=== PATIENT | male | born 1960 | race Caucasian/White ===

== ENCOUNTER 2023-01-23 11:22 | Outpatient (CLI) | payer OTHER, SELFPAY ==
[2023-01-23 12:10] LABS: Troponin I 0.061 ng/mL (0.000-0.034)
== END 2023-01-23 11:23 | disposition home or self-care (01) ==
LOC: ANHLAB 11:24
PROVIDERS: PCP Family Medicine; Visit Provider Physician Assistant
DX: R07.9 Chest pain, unspecified (principal)
CPT/HCPCS: 36415; 84484

== ENCOUNTER 2023-01-23 13:47 | Observation (INO) | payer OTHER, SELFPAY ==
[2023-01-23] VITALS (20 sets, daily range): BP systolic 123–154; BP diastolic 65–97; PULSE 57–82; RESP 10–31; TEMP 36.2–36.6; O2SAT 96–100; BMI 23.0
--- NOTE | ~2023-01-23 | XR_ITS ---
EXAMINATION: XR chest 1V portable DATE: 01/23/2023 14:26 INDICATION: Chest pain. TECHNIQUE: A single frontal view of the chest was obtained on 2 radiographs. COMPARISON: None. FINDINGS: There is mild scarring at right lung apex. No pleural effusion or pneumothorax. The heart s ize is normal. IMPRESSION: 1. Mild atelectasis at right lung apex. Reviewed, dictated and finalized at location A.
--- NOTE | ~2023-01-23 | CT_ITS ---
EXAMINATION: CTA chest PE protocol DATE: 01/23/2023 16:31 INDICATION: Elevated troponin and ddimer TECHNIQUE: Computed tomography angiography (CTA) of the chest was performed with 100 mL Omnipaque-350 intravenous contrast timed to evaluate the pulmonary arteries. Coronal maximum intensity projection 3D-reconstructions were created by the technologist. The dose-length product (DLP) was 365.16 mGy-cm. Automated exposure control and iterative reconstruction technique were employed. COMPARISON: X-ray chest, same date. FINDINGS: Lung parenchyma and airways: Biapical pleural scarring. Emphysematous change. Calcified pulmonary gra nuloma in the right upper lobe. Dependent atelectasis. Pleura: Unremarkable. Thoracic inlet, axillae and chest wall: Subcentimeter right thyroid nodule which requires no addition al evaluation. No axillary lymphadenopathy. Thoracic aorta: No significant dilation. Mild calcified and noncalcified plaque at the arch. Mediastinum: Small hiatal hernia. No mediastinal lymphadenopathy. Heart and pericardium: Normal. Coronary artery calcifications: Mild. Upper abdomen: No significant finding. Bones: No acute osseous finding. Pulmonary arteries: Study quality: Adequate. No pulmonary emboli detected. IMPRESSION: No CT evidence of acute pulmonary embolus. No acute intrathoracic process detected. Reviewed, dictated and finalized at location K. IMPRESSION: No CT evidence of acute pulmonary embolus. No acute intrathoracic process detec radha.
--- NOTE | 2023-01-23 14:00 | ECG_ITS ---
Measurements Intervals [place] Rate: 57 P: 46 TX: 170 QRS: 39 QRSD: 84 T: 35 QT: 375 QTc: 365 Interpretive Statements SINUS BRADYCARDIA MODERATE T-WAVE ABNORMALITY, CONSIDER ANTERIOR ISCHEMIA [-0.1+ mV T WAVE IN V3/V4] NO PREVIOUS ECG AVAILABLE FOR COMPARISON Electronically Signed On 01-23-2023 14:43:13 CDT by Kecia Serra M.D.
[2023-01-23 14:37] LABS: Basophils Absolute Auto 0.1 K/mm3 (0.0-0.1); Eosinophils Absolute Auto 0.1 K/mm3 (0-0.3); Eosinophils Percent Auto 0.9 % (0-4.4); Hematocrit 45.7 % (42.0-52.0); Hemoglobin 15.1 g/dL (14.0-18.0); Immature Granulocyte Absolute 0.03 K/mm3 (0.00-0.031); Immature Granulocyte Percent A 0.4 % (0-0.5); Lymphocytes Absolute Auto 1.28 K/mm3 (0.9-3.2); Lymphocytes Percent Auto 15.6 % (18.3-44.2); Mean Corpuscular Hemoglobin 30.3 pg (26-34); Mean Corpuscular Volume 91.6 fl (80-100); Mean Platelet Volume 10.4 fl (7.4-10.4); Monocytes Absolute Auto 0.5 K/mm3 (0.1-0.6); Monocytes Percent Auto 6.6 % (2.6-8.5); Neutrophils Absolute Auto 6.2 K/mm3 (1.3-6.7); Neutrophils Percent Auto 75.5 % (45.5-73.1); Platelet Count Result 291 k/mm3 (150-375); Red Blood Count 4.99 M/mm3 (4.6-6.20); Red Cell Distribution Width 12.9 % (11.5-14.5); White Blood Count 8.2 K/mm3 (4.5-10.0)
[2023-01-23 14:49] LABS: Alanine Aminotransferase 29 U/L (6-50); Albumin Level 4.5 g/dL (3.5-5.1); Alkaline Phosphatase 119 U/L (38-126); Anion Gap 6 mmol/L (8-16); Aspartate Amino Transferase 28 U/L (17-59); Bilirubin,Total 0.5 mg/dL (0.2-1.3); Blood Urea Nitrogen 18 mg/dL (9-20); Calcium 9.2 mg/dL (8.4-10.2); Carbon Dioxide 28 mmol/L (22-30); Chloride 104 mmol/L (98-107); Estimated CRCL calculation 78 ml/min; Estimated Glomerular Filt Rate > 60; Glucose 102 mg/dL (65-110); Potassium 4.6 mmol/L (3.4-5.0); Sodium 138 mmol/L (137-145)
[2023-01-23 14:57] LABS: Partial Thromboplastin Time 30.4 SECONDS (22.3-36.8); Prothrombin Time 14.1 Seconds (11.1-14.7)
[2023-01-23 15:00] LABS: D Dimer 0.56 ug/mL (<0.48)
[2023-01-23 15:02] LABS: Troponin I 0.055 ng/mL (0.000-0.034)
--- NOTE | 2023-01-23 15:14 | ED.CHESTPAIN ---
HPI - Chest Pain General Chief Complaint: Chest Pain Stated Complaint: chest pain Time Seen by Provider: 01/23/23 13:59 History of Present Illness HPI narrative: 62-year-old male presented the ED for evaluation of intermittent left-sided and epigastric chest pain. Patient reports on Sunday he drank some water while smoking a cigar and had onset of substernal chest pain that radiated to his left arm and lasted approximately 10 minutes. Sunday and today. Patient did take omeprazole and Maalox for the pain today and the symptoms resolved. Patient states that he does have borderline high cholesterol, is not diabetic and has not been diagnosed with hypertension. Patient states he is a smoker but denies any prior history of NE. Patient states he is pain-free here patient did present to his primary care physician for evaluation and did have an outpatient troponin that was elevated so he was referred to the emergency department for further evaluation. Related Data Allergies Allergy/AdvReac Type Severity Reaction Status Date / Time No Known Allergies Allergy Unverified 01/23/23 10:22 Review of Systems Review of Systems: All systems reviewed & are unremarkable except as noted in HPI and below PMFSH Past Medical History Medical History Smoking Family History Family History Father Heart disease Sibling Breast cancer Social History Social History Smoking status: Current some day smoker Tobacco type: cigars Alcohol intake: current Alcohol use details: 1-2 drinks a week Substance use: never Living arrangements: with family Occupation/Education: occupation Gender identity (if verbalized by the patient): Male Sexual Orientation (if Verbalized by the Patient): Straight or Heterosexual 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: No Exam Narrative: APPEARANCE: Well appearing, no pain, no distress, well-nourished. HEAD: normocephalic, atraumatic. EYES: PERRLA/EOMI, conjunctivae clear. NOSE: Normal no drainage EARS:TMS clear with good light reflex. THROAT: Pharynx clear, no exudate. NECK: Supple. No adenopathy, no masses. RESPIRATORY: Airway patent, respirations nonlabored. Clear to auscultation bilaterally, no rales, rhonchi, wheezing. CARDIOVASCULAR: Regular rate and rhythm without murmurs rubs or gallops. ABDOMINAL: Soft, nontender, nondistended, normal bowel sounds MUSCULOSKELETAL: Moves all extremities. Strength/ROM intact, No edema, No calf tenderness. NEURO: Alert. Cranial nerves II through XII intact. Good gait. Good coordination SKIN: Warm, dry. Normal Color PSYCHIATRIC: Normal affect/mood. Course Course Emergency Course: 62-year-old male presented the ED for evaluation for an elevated troponin. Patient's initial troponin was 0.061 and his 3-hour troponin that was done and our ED was 0.055. EKG showed T wave inversions with no evidence of acute STEMI. Patient did have an elevated dimer but patient's PE study was negative for acute pulmonary embolism. Patient was discussed with the sole painter on-call, Dr. Boss. Cardiology agreed the patient to be started on heparin with anticipated cardiac cath tomorrow. Patient did have aspirin and heparin ordered. Patient was updated the results of the work-up and plan for admission with an anticipated cath tomorrow. All questions and concerns were addressed and patient was admitted to the IMU. Vital Signs Vital signs: Vital Signs Temperature 97.2 F L 01/23/23 13:49 Pulse Rate 73 01/23/23 13:49 Respiratory Rate 18 01/23/23 13:49 Blood Pressure 154/94 H 01/23/23 13:49 Pulse Oximetry 99 01/23/23 13:49 Oxygen Delivery Room Air 01/23/23 13:49 Temperature 97.2 F L 01/23/23 13:49 Pulse Rate 60 01/23/23 18:18 Respiratory Rate 18 01/23/23 13:49 Blood Pressure 154/94 H 01/23/23 13:49 Pulse Oximetry 99 01/23/23 13:49 Oxygen
[2023-01-23] MEDS: HEPARIN SODIUM 5,000 UNITS/ML VIAL 5000 UNITS (18:14)
[2023-01-23] MEDS: HEPARIN SOD/D5W 100 UNITS/ML 25,000 UNITS/250 ML BAG 12 UNITS (18:14)
--- NOTE | 2023-01-23 18:41 | PM.IMHP ---
H&P: HPI History of Present Illness Date/Time: 01/23/23 18:15 Chief Complaint: Chest pain. Narrative: This is a pleasant 62-year-old smoker who presented to the emergency department via private vehicle for evaluation of chest pain. The patient provides the following history. On Sunday morning he got up at about 07:00 as usual, had a couple coffee, and went outside to smoke part of a cigar. At that time he developed a pressure-like discomfort in the mid chest region radiating up into the left side of the neck and jaw and into the left arm. He initially thought he was having esophageal spasms so he went inside to drink some water and take [place] and his symptoms resolved within 10 minutes or so. Later on that day he went shopping at [id number] and he was able to walk around the entire store without issue. Once he was home he when out to mow the lawn and approximately 30 minutes into the job he had similar pressure-like discomfort in the chest. He rested for a while, it resolved, and he was ultimately able to finish mowing. The last couple of days he has had similar episodes, mainly in the morning, which seemed to improve with drinking water. Today the discomfort was more intense and was associated with sweats. He took omeprazole thinking it was perhaps GERD or esophageal spasms though that did not help. He phoned his doctor, had outpatient lab work drawn, and was referred to the ER after his troponin was found to be slightly elevated at 0.061. Repeat troponin in the ED was 0.055. D-dimer was slightly elevated and a CTA of the chest was negative for pulmonary embolism. EKG showed a sinus bradycardia with moderate T-wave abnormalities in the anterior leads concerning for possible ischemia. He is being admitted in this setting for close monitoring, consultation with Cardiology, and consideration for cardiac catheterization tomorrow. He is not having any significant discomfort at this time. He has no known history of coronary artery disease. Father had heart disease in his mid 50s. Review of Systems Review of Systems: Twelve systems were reviewed. No syncope or near syncope. No pleuritic pain. No palpitations or sensations of racing heart. Heart rate typically runs in the 60s. He denies nausea and vomiting. He did have some sweats with the chest discomfort earlier today. No shortness of breath. Except as documented, all other systems were reviewed and are negative. [facility] Past Medical History Medical History Benign prostatic hyperplasia Smoking Surgical History Surgical History (Updated 01/23/23 @ 21:39 by Dina Payne PA-C) No history of previous surgery Family History Family History Father Heart disease Sibling Breast cancer Social History Social History (Updated 01/23/23 @ 21:41 by Dina Payne PA-C) Social History: Surrogate medical decision maker: Dilia Ding, spouse. Code status: Full code. Smoking packs per day: 1 Smoking cigarettes per day: 20.0 Smoking status: Current every day smoker Tobacco type: cigars Additional smoking assessment comments: He has been using nicotine gum recently and has an occasional cigar. Alcohol intake: current Drinks per week: 1 Alcohol use details: 1-2 drinks a week Substance use: never Lack of Transportation: No Lack of Food: Never True Current Housing: I Have Housing Concerned About Future Housing: No Difficulty Paying Gas/Electric Bills: No Difficulty Paying for Meds: No Currently Unemployed: No Education: Bachelor's Degree Difficulty w/ Childcare or Family Care: No Living arrangements: with family Additional living arrangements comments: Lives with spouse in [place]. 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: No Meds Home Medications and Allergies Home Medications Medication Instructio
--- NOTE | 2023-01-23 19:55 | ADMGEN ---
This patient, Mariano Ding, was admitted to IMU Room 201-01. Patient/family oriented to hospital policies and general routines including ID bracelet, bed and alarms, visiting hours, pain management, procedures, bathroom and other care routines, personal items, smoking policy, room service/diet, and visiting hours. Information on how to activate the Rapid Response Team has been discussed. Patient/Family are encouraged to report perceived risks to care and to ask questions if they do not understand what they are told or what they should do.
[2023-01-23 19:56] LABS: Troponin I 0.026 ng/mL (0.000-0.034)
--- NOTE | 2023-01-23 20:02 | PM.CNCAR ---
Assessment and Plan Assessment and plan (1) Non-ST elevation [place] (NSTEMI): Code(s): I21.4 - Non-ST elevation (NSTEMI) myocardial infarction Status: Acute Assessment and Plan: Mild with Troponin .06, then .05. Got aspirin 325 mg in ER and started on heparin drip. Start Atorvastatin 80 mg qhs, Metoprolol Tartate 12.5 mg BID, and continue aspirin 81 mg daily. Check another troponin level in 3 hours since second draw. Obtain echo in AM. Keep NPO after midnight and plan for [facility] tomorrow. I will let HCG know in AM. (2) Smoking: Code(s): F17.200 - Nicotine dependence, unspecified, uncomplicated Status: Acute Assessment and Plan: Counseled regarding smoking cessation. History of Present Illness History of Present Illness Consult date/time: 01/23/23 20:02 Reason For Visit: NSTEMI Narrative: 62 yr old man presents to ER with chest pain. He has a history of smoking cigarettes 50 pk years then changed to 3 cigars a day, BPH, family history of CAD in his father at age 55. Reports for last 3 days he had chest pressure with radiation to left neck after drinking water and had diaphoresis. He mowed his lawn and had exertional chest pressure with radiation to left neck, so he stopped and discomfort subsided, when he attempted to mow again the discomfort returned. He went to his PCP office, Dr. Moran who ordered troponin and it was slightly elevated at .06. He was then told to go to ER for evaluation. Currently without active chest pains. Denies orthopnea, PND, edema, dizziness, palpitations. Review of Systems Review of Systems: All systems reviewed & are unremarkable except as noted in HPI and below Constitutional: Constitutional: Reports as per HPI, Denies chills and Denies fever(s) Cardiovascular: Cardiovascular: Reports as per HPI, Reports chest pain, Reports diaphoresis, Denies irregular heart rhythm, Denies leg edema and Denies lightheadedness Respiratory: Respiratory: Reports as per HPI and Denies dyspnea Gastrointestinal: Gastrointestinal: Reports as per HPI and Denies abdominal pain Genitourinary: Genitourinary: Reports as per HPI and Denies dysuria Musculoskeletal: Musculoskeletal: Reports as per HPI Neurologic: Reports as per HPI, Denies dizziness and Denies syncope [facility] Past Medical History Medical History Smoking Family History Family History Father Heart disease Sibling Breast cancer Social History Social History Smoking status: Current some day smoker Tobacco type: cigars Alcohol intake: current Alcohol use details: 1-2 drinks a week Substance use: never Living arrangements: with family Occupation/Education: occupation Gender identity (if verbalized by the patient): Male Sexual Orientation (if Verbalized by the Patient): Straight or Heterosexual 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: No Meds Home Medications and Allergies Home Medications Medication Instructions Recorded Confirmed Type aspirin 81 mg tablet,delayed 81 mg PO DAILY #30 tabs 01/23/23 01/23/23 Rx release Allergies Allergy/AdvReac Type Severity Reaction Status Date / Time No Known Allergies Allergy Unverified 01/23/23 10:22 Vital Signs Vital Signs - 24 hr 01/23/23 13:49 01/23/23 18:18 01/23/23 16:10 Temperature 97.2 F L Pulse Rate 73 60 67 Respiratory Rate 18 10 L Blood Pressure 154/94 H Pulse Oximetry 99 99 Oxygen Delivery Room Air 01/23/23 16:33 01/23/23 16:45 01/23/23 17:00 Temperature Pulse Rate 74 60 68 Respiratory Rate 11 L 15 19 Blood Pressure Pulse Oximetry 99 99 100 Oxygen Delivery 01/23/23 17:15 01/23/23 17:30 01/23/23 17:47 Temperature Pulse Rate 67 64 65 Respiratory Rate 10 L 12 12 Blood Pressure Pulse Oximetry 99 100 100 Oxygen Delivery 01/23/23 18:00 01/23/23 18:15 01/23/23 18:18 Temperature
[2023-01-23] MEDS: HEPARIN SOD/D5W 100 UNITS/ML 25,000 UNITS/250 ML BAG 9 UNITS IV CONT (21:00)
[2023-01-23] MEDS: ATORVASTATIN 40 MG TABLET 80 MG PO (21:03)
[2023-01-23] MEDS: METOPROLOL TARTRATE 12.5 MG TABLET PO (21:03)
[2023-01-24] VITALS (19 sets, daily range): BP systolic 118–140; BP diastolic 63–88; PULSE 52–72; RESP 14–20; TEMP 36.1–37.2; O2SAT 95–100
--- NOTE | 2023-01-24 | ECHO_ITS ---
Patient Info Name: Mariano Ding Age: 62 years : 1960 Gender: Male Ht: 70 in Wt: 165 lbs BSA: 1.93 m2 HR: 72 bpm BP: 119 / 63 mmHg Heart Rhythm: Sinus Rhythm Technical Quality: Good Exam Date: 01/24/2023 1:36 PM Exam Location: [facility] Card Pulmonary Patient Status: Inpatient Admit Date: 01/23/2023 Staff Ordering Physician: Neel Boss DO Editor Producer: Isabela Garg RDCS Attending Provider: Lyssa Clemente DO Referring Physician: Gera JEFFREY; Exam Type: CA echo doppler color flow Study Info Indications - ACS Complete two-dimensional, color flow and Doppler transthoracic echocardiogram is performed. Summary 1. Complete two-dimensional, color flow and Doppler transthoracic echocardiogram is performed. 2. Left ventricular chamber dimension is normal. 3. Left ventricular systolic function is normal, estimated at 65-70%. 4. The left ventricular diastolic function is normal. 5. There is trace tricuspid valve regurgitation. 6. No pulmonary hypertension, estimated pulmonary arterial systolic pressure is 9 mmHg. Left Ventricle Left ventricular chamber dimension is normal. Left ventricular systolic function is normal, estimated at 65-70%. The left ventricular diastolic function is normal. Right Ventricle Right ventricular systolic function is normal and with normal TAPSE 2.7 cm. Right ventricular chamber dimension is normal. Left Atria Left atrial chamber dimension is normal. Right Atria Right atrial chamber dimension is normal. Aortic Valve The aortic valve is trileaflet. There is no aortic valve stenosis. There is no aortic valve regurgitation. Pulmonic Valve There is no pulmonic regurgitation. Mitral Valve There is no mitral valve stenosis. There is no mitral valve regurgitation. Tricuspid Valve There is trace tricuspid valve regurgitation. No pulmonary hypertension, estimated pulmonary arterial systolic pressure is 9 mmHg. Pericardium/Pleural There is no pericardial effusion. Inferior Vena Cava Normal inferior vena cava with >50% collapse upon inspiration consistent with normal right atrial pressure, 5 mmHg. Aorta The aortic root size at the sinus of Valsalva is normal. Left Ventricular Outflow Tract Name Value Normal LVOT 2D LVOT Diameter 1.9 cm LVOT Doppler LVOT Peak Gradient 5 mmHg LVOT Mean Gradient 2 mmHg LVOT VTI 29 cm LVOT VTI/AV VTI Ratio 1.0 LVOT Stroke Volume 86 ml LVOT CO 4.5 l/min LVOT CI 2.3 l/min/m2 Pulmonic Valve Name Value Normal RVOT Doppler RVOT Peak Gradient 2 mmHg PV Doppler PV Peak Gradient 4 mmHg Mitral Valve
[2023-01-24 01:32] LABS: Partial Thromboplastin Time 76.3 SECONDS (22.3-36.8)
[2023-01-24 04:08] LABS: Hemoglobin 15.3 g/dL (14.0-18.0); Mean Corpuscular HGB Conc 33.3 g/dl (32-36); Mean Corpuscular Hemoglobin 30.3 pg (26-34); Mean Corpuscular Volume 91.1 fl (80-100); Mean Platelet Volume 10.3 fl (7.4-10.4); Platelet Count Result 293 k/mm3 (150-375); Red Blood Count 5.05 M/mm3 (4.6-6.20); Red Cell Distribution Width 12.8 % (11.5-14.5); White Blood Count 8.9 K/mm3 (4.5-10.0)
[2023-01-24 04:20] LABS: Anion Gap 3 mmol/L (8-16); Blood Urea Nitrogen 17 mg/dL (9-20); Calcium 9.6 mg/dL (8.4-10.2); Carbon Dioxide 29 mmol/L (22-30); Chloride 102 mmol/L (98-107); Cholesterol 198 mg/dL (0-200); Estimated CRCL calculation 78 ml/min; Estimated Glomerular Filt Rate > 60; Glucose 100 mg/dL (65-110); HDL Direct 49 mg/dL; Magnesium 2.4 mg/dL (1.6-2.3); Potassium 4.1 mmol/L (3.4-5.0); Sodium 134 mmol/L (137-145); Triglycerides 82 mg/dL (<150)
[2023-01-24 04:31] LABS: LDL Cholesterol Direct 112 mg/dL
[2023-01-24 06:56] LABS: Partial Thromboplastin Time 63.4 SECONDS (22.3-36.8)
--- NOTE | 2023-01-24 07:46 | PM.PNCARD ---
Progress Note: A&P Assessment and Plan (1) Non-ST elevation [place] (NSTEMI): Code(s): I21.4 - Non-ST elevation (NSTEMI) myocardial infarction Status: Acute Assessment and Plan: Mild with Troponin .06, then .05 then .026. Got aspirin 325 mg in ER and started on heparin drip. Started Atorvastatin 80 mg qhs, Metoprolol Tartate 12.5 mg BID, and continue aspirin 81 mg daily. Obtain echo today. Keep NPO for LHC today. Consult [facility] for LHC. Discuss risks/benefits/alternative treatment to [facility] and he is agreeable to it. (2) Smoking: Code(s): F17.200 - Nicotine dependence, unspecified, uncomplicated Status: Acute Assessment and Plan: Counseled regarding smoking cessation. Subjective Date/time seen: 01/24/23 07:46 Interval history: No chest pain or sob resting in bed. Exam Const: General: cooperative, healthy appearing and comfortable Orientation/consciousness: oriented to person, oriented to place and oriented to time Resp: Auscultation: clear to auscultation bilaterally, no crackles, no rales, no rhonchi and no wheezes Cardio: Rate: regular rate Rhythm: regular rhythm Heart sounds: no murmurs Peripheral pulses: dorsalis pedis present Neuro: General: oriented to person, oriented to place and oriented to time Extrem: Right lower extremity: no edema Left lower extremity: no edema Objective Data Vital Signs Vital Signs: Vital Signs - 24 hr 01/23/23 13:49 01/23/23 18:18 01/23/23 16:10 Temperature 97.2 F L Pulse Rate 73 60 67 Respiratory Rate 18 10 L Blood Pressure 154/94 H Pulse Oximetry 99 99 Oxygen Delivery Room Air 01/23/23 16:33 01/23/23 16:45 01/23/23 17:00 Temperature Pulse Rate 74 60 68 Respiratory Rate 11 L 15 19 Blood Pressure Pulse Oximetry 99 99 100 Oxygen Delivery 01/23/23 17:15 01/23/23 17:30 01/23/23 17:47 Temperature Pulse Rate 67 64 65 Respiratory Rate 10 L 12 12 Blood Pressure Pulse Oximetry 99 100 100 Oxygen Delivery 01/23/23 18:00 01/23/23 18:15 01/23/23 18:18 Temperature Pulse Rate 64 70 69 Respiratory Rate 17 12 10 L Blood Pressure 144/96 H Pulse Oximetry 100 99 100 Oxygen Delivery 01/23/23 18:57 01/23/23 19:01 01/23/23 19:15 Temperature Pulse Rate 69 60 82 Respiratory Rate 20 13 18 Blood Pressure 139/97 H Pulse Oximetry 100 98 98 Oxygen Delivery 01/23/23 19:16 01/23/23 19:55 01/23/23 21:03 Temperature 97.5 F L Pulse Rate 78 62 65 Respiratory Rate 31 H 20 Blood Pressure 149/88 H Pulse Oximetry 100 99 Oxygen Delivery 01/23/23 21:00 01/23/23 21:47 01/23/23 23:45 Temperature 97.8 F Pulse Rate 65 57 L Respiratory Rate 18 Blood Pressure 123/65 Pulse Oximetry 98 Oxygen Delivery Room Air 01/24/23 00:00 01/24/23 00:00 01/24/23 02:00 Temperature Pulse Rate 57 L 56 L Respiratory Rate Blood Pressure Pulse Oximetry Oxygen Delivery Room Air 01/24/23 04:00 01/24/23 04:00 01/24/23 04:00 Temperature 97.5 F L Pulse Rate 53 L 72 Respiratory Rate 18 Blood Pressure 119/63 Pulse Oximetry 96 Oxygen Delivery Room Air 01/23/23 23:10 01/24/23 06:00 Temperature Pulse Rate 64 Respiratory Rate Blood Pressure Pulse Oximetry 96 Oxygen Delivery Room Air Intake/Output Intake/Output: Intake & Output 01/21/23 01/22/23 01/23/23 01/24/23 23:59 23:59 23:59 23:59 Intake Total 300 Output Total 650 Balance -350 Meds/Results Medications: Active Medications Generic Name Dose Route Start Last Admin Trade Name Freq PRN Reason Stop Dose Admin Acetaminophen 650 mg 01/23/23 21:47 Acetaminophen 325 Mg Tablet PO Q6H PRN Mild Pain (1-3) or Fever Hydrocodone Bitart/Acetaminophen 1 tab 01/23/23 21:47 Hydrocodone/Acetaminophen (*Crx) 5-325 Mg Tablet PO Q6H PRN Pain Rated 4-6 Aspirin 81 mg 01/24/23 09:00 Aspirin 81 Mg Enteric Tablet PO QAM MJ Atorvastatin Calci
[2023-01-24] MEDS: HEPARIN SODIUM 5,000 UNITS/ML VIAL 3000 UNITS IV PUSH (08:07)
[2023-01-24] MEDS: METOPROLOL TARTRATE 12.5 MG TABLET PO (09:03)
[2023-01-24] MEDS: ASPIRIN 81 MG ENTERIC TABLET PO (09:03)
--- NOTE | 2023-01-24 09:31 | PM.CNCAR ---
Assessment and Plan Assessment and plan (1) Non-ST elevation [place] (NSTEMI): Code(s): I21.4 - Non-ST elevation (NSTEMI) myocardial infarction Status: Acute Assessment and Plan: LHC recommended given NSTEMI. Discussed the procedure with the patient, including procedure details, risks vs benefits, etc. Patient is agreeable to proceed. Will plan for LHC this morning. History of Present Illness History of Present Illness Consult date/time: 01/24/23 09:31 Requesting physician: Neel Boss DO Consult reason: Other ([facility]) Reason For Visit: NSTEMI Narrative: Interventional Cardiology is being consulted for [facility]. This is a pleasant 62 year old male with history of smoking, BPH, family history of CAD who presented to [facility] with chest pain that has been occurring for the past 3 days. Chest pressure with radiation to the neck, along with exertional component. EKG on admission shows sinus bradycardia, moderate T-wave abnormality in the anterior leads. Positive troponin with peak troponin of 0.061. Patient is currently chest pain free at rest. Review of Systems Review of Systems: All systems reviewed & are unremarkable except as noted in HPI and below (HPI) [facility] Past Medical History Medical History Benign prostatic hyperplasia Smoking Surgical History Surgical History No history of previous surgery Family History Family History Father Heart disease Sibling Breast cancer Social History Social History Social History: Surrogate medical decision maker: Dilia Ding, spouse. Code status: Full code. Smoking packs per day: 1 Smoking cigarettes per day: 20.0 Smoking status: Current every day smoker Tobacco type: cigars Additional smoking assessment comments: He has been using nicotine gum recently and has an occasional cigar. Alcohol intake: current Drinks per week: 1 Alcohol use details: 1-2 drinks a week Substance use: never Lack of Transportation: No Lack of Food: Never True Current Housing: I Have Housing Concerned About Future Housing: No Difficulty Paying Gas/Electric Bills: No Difficulty Paying for Meds: No Currently Unemployed: No Education: Bachelor's Degree Difficulty w/ Childcare or Family Care: No Living arrangements: with family Additional living arrangements comments: Lives with spouse in [place]. 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: No Meds Home Medications and Allergies Home Medications Medication Instructions Recorded Confirmed Type aspirin 81 mg tablet,delayed 81 mg PO DAILY #30 tabs 01/23/23 01/23/23 Rx release Allergies Allergy/AdvReac Type Severity Reaction Status Date / Time No Known Allergies Allergy Unverified 01/23/23 10:22 Vital Signs Vital Signs - 24 hr 01/23/23 13:49 01/23/23 18:18 01/23/23 16:10 Temperature 36.2 C L Pulse Rate 73 60 67 Respiratory Rate 18 10 L Blood Pressure 154/94 H Pulse Oximetry 99 99 Oxygen Delivery Room Air 01/23/23 16:33 01/23/23 16:45 01/23/23 17:00 Temperature Pulse Rate 74 60 68 Respiratory Rate 11 L 15 19 Blood Pressure Pulse Oximetry 99 99 100 Oxygen Delivery 01/23/23 17:15 01/23/23 17:30 01/23/23 17:47 Temperature Pulse Rate 67 64 65 Respiratory Rate 10 L 12 12 Blood Pressure Pulse Oximetry 99 100 100 Oxygen Delivery 01/23/23 18:00 01/23/23 18:15 01/23/23 18:18 Temperature Pulse Rate 64 70 69 Respiratory Rate 17 12 10 L Blood Pressure 144/96 H Pulse Oximetry 100 99 100 Oxygen Delivery 01/23/23 18:57 01/23/23 19:01 01/23/23 19:15 Temperature Pulse Rate 69 60 82 Respiratory Rate 20 13 18 Blood Pressure 139/97 H Pulse Oximetry 100 98 98 Oxygen Delivery
--- NOTE | 2023-01-24 09:33 | PC.NURSE ---
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
--- NOTE | 2023-01-24 09:35 | WPDMODSED ---
Moderate Sedation Note-Pt Data Patient Data Diagnosis: NSTEMI Present Complaint: NSTEMI Procedure to be performed/Plan: Coronary angiography, left heart cath, +/- PCI Allergies Allergy/AdvReac Type Severity Reaction Status Date / Time No Known Allergies Allergy Unverified 01/23/23 10:22 Home Medications Medication Instructions Recorded Confirmed Type aspirin 81 mg tablet,delayed 81 mg PO DAILY #30 tabs 01/23/23 01/23/23 Rx release Current Medications: Active Medications Acetaminophen (Acetaminophen 325 Mg Tablet) 650 mg PO Q6H PRN PRN Reason: Mild Pain (1-3) or Fever Hydrocodone Bitart/Acetaminophen (Hydrocodone/Acetaminophen (*Crx) 5-325 Mg Tablet) 1 tab PO Q6H PRN PRN Reason: Pain Rated 4-6 Aspirin (Aspirin 81 Mg Enteric Tablet) 81 mg PO QAM [facility] Last Admin: 01/24/23 09:03 Dose: 81 mg Atorvastatin Calcium (Atorvastatin 40 Mg Tablet) 80 mg PO QHS [facility] Last Admin: 01/23/23 21:03 Dose: 80 mg Heparin Sodium (Porcine) (Heparin Sodium 5,000 Units/Ml Vial) 3,000 units IV PUSH PRN PRN PRN Reason: aPTT 55 - 70 seconds Last Admin: 01/24/23 08:07 Dose: 3,000 units Heparin Sodium (Porcine) (Heparin Sodium 5,000 Units/Ml Vial) 4,000 units IV PUSH PRN PRN PRN Reason: aPTT less than 55 seconds Heparin Sodium/Dextrose (Heparin Sodium/D5w 100 Units/Ml) 25,000 units in 250 mls @ 10 mls/hr IV CONT .Q24H MJ; Protocol Last Titration: 01/24/23 08:06 Dose: 1,000 units/hr, 10 mls/hr Metoprolol Tartrate (Metoprolol Tartrate 12.5 Mg Tablet) 12.5 mg PO Q12HR [facility] Last Admin: 01/24/23 09:03 Dose: 12.5 mg Morphine Sulfate (Morphine Sulfate (*Crx) 2 Mg/Ml Inj) 2 mg IV PUSH Q4H PRN PRN Reason: Pain Rated 7-10 Perflutren Lipid Microsphere (Perflutren Lipid Microspheres 1.5 Ml Vial Diluted To 10 Ml Total Volume) 0 ml IV PUSH ONCE PRN; Protocol PRN Reason: adequate visualization Stop: 01/25/23 20:02 Sedation/Anesthesia: No previous sedation/anesthesia problems (including family history). [facility] Past Medical History Medical History Benign prostatic hyperplasia Smoking Surgical History Surgical History No history of previous surgery Family History Family History Father Heart disease Sibling Breast cancer Social History Social History Social History: Surrogate medical decision maker: Dilia Ding, spouse. Code status: Full code. Smoking packs per day: 1 Smoking cigarettes per day: 20.0 Smoking status: Current every day smoker Tobacco type: cigars Additional smoking assessment comments: He has been using nicotine gum recently and has an occasional cigar. Alcohol intake: current Drinks per week: 1 Alcohol use details: 1-2 drinks a week Substance use: never Lack of Transportation: No Lack of Food: Never True Current Housing: I Have Housing Concerned About Future Housing: No Difficulty Paying Gas/Electric Bills: No Difficulty Paying for Meds: No Currently Unemployed: No Education: Bachelor's Degree Difficulty w/ Childcare or Family Care: No Living arrangements: with family Additional living arrangements comments: Lives with spouse in [place]. 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: No Mod Sed Physical Exam Physical Exam Pre Procedural Exam: Normal: Appearance, Lungs, Heart Rate, Heart Rhythm, Neuro Exam, Abdomen, Extremities and Skin Hours since solid foods: 12 Hours since liquid intake: 8 Mallampati Classification: class III Internal Medicine - PN: Obj Da Vital Signs Vital Signs: Vital Signs - 24 hr 01/23/23 13:49 01/23/23 18:18 01/23/23 16:10 Temperature 36.2 C L Pulse Rate 73 60 67 Respiratory Rate 18 10 L Blood Pressure 154/94 H Pulse Oximetry 99 99 Oxygen Delivery Room Air
--- NOTE | 2023-01-24 09:36 | WPDCARDPROC ---
Cardiac Cath Procedure Note Date of procedure:: 01/24/23 Performing physician:: CATHETERIZATION LABORATORY REPORT Procedure Date: 01/24/2023 Sap Specialist: Kecia Serra M.D., [facility]? Referring Physician: Dr. Boss ? Anesthesia: Versed and Fentanyl were ordered and given in my presence at 09:40, procedure ended at 10:07. Supervision of nurse monitored moderate sedation with Versed and Fentanyl was provided for 27 minutes. Total of Versed 2mg and Fentanyl 50mcg were administered by the Sap Fico Architect RN Jin Guevara. Pre-op Diagnosis: NSTEMI Post-op Diagnosis: 1. Multivessel coronary artery disease involving the LAD, Ramus, OM-2, and RCA. 2. Left ventricular end-diastolic pressure of 18mmHg Procedure(s): 1. Moderate sedation 2. Ultrasound-guided access of the right radial artery 3. Coronary angiography 4. Left heart cath Access Site: Right radial artery Brief History and Clinical Indications: Patient is a 62 year old male who is referred for [facility] for NSTEMI. All risks, benefits and alternatives to left heart catheterization with or without percutaneous coronary intervention was discussed at length with the patient. Risk of complications including but not limited to bleeding, infection, arrhythmia, stroke, worsening kidney function, blood loss, groin hematoma, limb loss, emergency coronary artery bypass grafting, and even were discussed with the patient and all questions were answered. The patient understood and wished to proceed. Time out called, patient name, date of , medical record number, allergies, procedure performed, identify Sap Specialist, patient and staff member concurred with accurate data, procedure carried on. Findings: LEFT HEART CATHETERIZATION FINDINGS: 1. Left main: Large caliber vessel. The left main coronary artery is widely patent without any significant obstructive disease. 2. Left anterior descending: Large caliber vessel that tapers to small caliber distally. Calcifications seen in the proximal-mid LAD. The proximal LAD has a focal 70-80% stenosis followed by a moderate stenosis. The remainder of the LAD has luminal irregularities. The diagonal branches are small caliber and without obstructive disease. 3. Ramus: There is a small caliber Ramus branch with significant diffuse disease in its proximal-mid portion. 4. Left circumflex: The left circumflex has mild diffuse disease. OM-1 is a small caliber branch with mild diffuse disease. OM-2 has a focal 70% stenosis in its mid portion. 5. Right coronary artery: The RCA is the dominant vessel. There is a long, complex subtotal occlusion in the proximal-mid RCA. There are right to right bridging collaterals along with some faint left to right collaterals. The RCA distal to this complex occlusion appears to have mild diffuse disease. 6. Left ventricle: A. End-diastolic pressure 18mmHg. B. LV gram deferred. C. No significant gradient across aortic valve on catheter pullback. Description of Procedure: Informed consent signed and placed in the chart. Patient transferred to clinical laboratory medical director room. Prepped and draped in usual sterile fashion. 2% lidocaine injected subcutaneously in right wrist area. 22-gauge venipuncture catheter used to access the right radial artery under ultrasound guidance. 6-FR slender sheath placed in right radial artery. Nitroglycerine and Verapamil were given intraarterial through the sheath. Versacore wire advanced under fluoroscopy 5F Tig 4 diagnostic catheter engaged Left Main Coronary Artery. 5F Tig 4 diagnostic catheter engaged Right Coronary Artery Multiple orthogonal angiogram obtained and reviewed 5F Pigtail diagnostic catheter crossed aortic valve to obtain LVEDP, LV angiogram deferred. Hemostasis was achieved by application of TR band. ? Assessment: 1. Multivessel coronary artery disease involving the LAD, Ramus, OM-2, and RCA. 2. Left ventricular end-diastolic pressure of 18mmHg Post Operative Conditio
--- NOTE | 2023-01-24 09:52 | PM.IMPN ---
Progress Note: A&P Assessment and Plan (1) Acute coronary syndrome with high troponin: Code(s): I24.9 - Acute ischemic heart disease, unspecified Status: Acute (2) Abnormal EKG: Code(s): R94.31 - Abnormal electrocardiogram [ECG] [EKG] Status: Acute (3) Tobacco use: Code(s): Z72.0 - Tobacco use Status: Acute Plan The patient presented to the emergency department for evaluation of chest discomfort elevated troponin EKG shows sinus rhythm no ST elevation started on a heparin drip as well as a high-intensity statin and beta-cayla. left heart catheterization multiple coronary artery disease, patient will be transferred to [facility] [place] for CABG The procedure is uncomplicated. Smoking cessation is imperative. Home medications are reviewed and resumed as appropriate. Subjective Date/time seen: 01/24/23 09:52 Interval history: No chest pain or sob resting in bed. Cardiac catheterization reveals multivessel disease, patient denies headache, focal weakness, vision change, abdomen pain, patient is afebrile, hemodynamically stable. Exam Narrative: General: Well-developed, nontoxic-appearing male sitting up in bed in no acute distress. Weight: 74.9 kg. BMI: 23.0. HEENT: PERRL, EOMI. Sclera anicteric. Oral mucosa moist. Neck: Supple. No JVD. Respiratory: Lungs are clear to auscultation bilaterally. Cardiovascular: Regular rate and rhythm with S1-S2. No murmur, rub, or gallop. Chest: No tenderness to palpation over the chest wall. Gastrointestinal: Abdomen is soft, nontender, and nondistended with positive bowel sounds. Skin: Warm and dry. No rash or lesions on limited exam. Extremities: No cyanosis, clubbing, or edema. Radial and pedal pulses intact. Neurological: Alert. Cranial nerves 2-12 are grossly intact. No gross focal deficits to casual conversation. Psychiatric: Pleasant and cooperative with normal mood and affect. Judgment and insight intact. Objective Data Vital Signs Vital Signs: Vital Signs - 24 hr 01/23/23 13:49 01/23/23 18:18 01/23/23 16:10 Temperature 97.2 F L Pulse Rate 73 60 67 Respiratory Rate 18 10 L Blood Pressure 154/94 H Pulse Oximetry 99 99 Oxygen Delivery Room Air 01/23/23 16:33 01/23/23 16:45 01/23/23 17:00 Temperature Pulse Rate 74 60 68 Respiratory Rate 11 L 15 19 Blood Pressure Pulse Oximetry 99 99 100 Oxygen Delivery 01/23/23 17:15 01/23/23 17:30 01/23/23 17:47 Temperature Pulse Rate 67 64 65 Respiratory Rate 10 L 12 12 Blood Pressure Pulse Oximetry 99 100 100 Oxygen Delivery 01/23/23 18:00 01/23/23 18:15 01/23/23 18:18 Temperature Pulse Rate 64 70 69 Respiratory Rate 17 12 10 L Blood Pressure 144/96 H Pulse Oximetry 100 99 100 Oxygen Delivery 01/23/23 18:57 01/23/23 19:01 01/23/23 19:15 Temperature Pulse Rate 69 60 82 Respiratory Rate 20 13 18 Blood Pressure 139/97 H Pulse Oximetry 100 98 98 Oxygen Delivery 01/23/23 19:16 01/23/23 19:55 01/23/23 21:03 Temperature 97.5 F L Pulse Rate 78 62 65 Respiratory Rate 31 H 20 Blood Pressure 149/88 H Pulse Oximetry 100 99 Oxygen Delivery 01/23/23 21:00 01/23/23 21:47 01/23/23 23:45 Temperature 97.8 F Pulse Rate 65 57 L Respiratory Rate 18 Blood Pressure 123/65 Pulse Oximetry 98 Oxygen Delivery Room Air 01/24/23 00:00 01/24/23 00:00 01/24/23 02:00 Temperature Pulse Rate 57 L 56 L Respiratory Rate Blood Pressure Pulse Oximetry Oxygen Delivery Room Air 01/24/23 04:00 01/24/23 04:00 01/24/23 04:00 Temperature 97.5 F L Pulse Rate 53 L 72 Respiratory Rate 18 Blood Pressure 119/63 Pulse Oximetry 96 Oxygen Delivery Room Air 01/23/23 23:10 01/24/23 06:00 01/24/23 08:10 Temperature 98.4 F Pulse Rate 64 61 Respiratory Rate 16 Blood Pressure 131/72 Pulse Oximetry 96 96 Oxygen Delivery Room Air 01/24/23 09:03 01/24/23
--- NOTE | 2023-01-24 15:11 | PM.TDS ---
Transfer Discharge Sum: Prov Provider Date of admission: 01/23/23 17:23 Primary care physician: Vik Moran MD Admitting clinician: Lyssa Clemente DO Consults: 01/23/23 Consult to Physician Routine Comment: Consulting Provider: Neel Boss Reason for consultation: NSTEMI Has provider been notified: Yes 01/24/23 Consult to Physician Routine Comment: Called office and notified them of consult Consulting Provider: Lemuel Marquez rn call center/MD group to consult: HCG Reason for consultation: [facility] Has provider been notified: Yes DS: Admitting Diagnosis Discharge Date Today Admitting Diagnosis (1) Acute coronary syndrome with high troponin: ?Code(s): I24.9 - Acute ischemic heart disease, unspecified ?Status:?Acute (2) Abnormal EKG: ?Code(s): R94.31 - Abnormal electrocardiogram [ECG] [EKG] ?Status:?Acute (3) Tobacco use: ?Code(s): Z72.0 - Tobacco use ?Status:?Acute DS: Discharge Diagnosis Discharge Diagnosis (1) Acute coronary syndrome with high troponin: Code(s): I24.9 - Acute ischemic heart disease, unspecified Status: Acute (2) Abnormal EKG: Code(s): R94.31 - Abnormal electrocardiogram [ECG] [EKG] Status: Acute (3) Tobacco use: Code(s): Z72.0 - Tobacco use Status: Acute Plan The patient presented to the emergency department for evaluation of chest discomfort elevated troponin EKG shows sinus rhythm no ST elevation started on a heparin drip as well as a high-intensity statin and beta-cayla. left heart catheterization multiple coronary artery disease, patient will be transferred to [facility] for CABG The procedure is uncomplicated. Smoking cessation is imperative. Home medications are reviewed and resumed as appropriate. Transfer Discharge Sum: Med Medications Active and Home Medications: Home Medications aspirin 81 mg tablet,delayed release 81 mg PO DAILY #30 tabs 01/23/23 [Rx Confirmed 01/23/23] Active Medications Acetaminophen (Acetaminophen 325 Mg Tablet) 650 mg PO Q6H PRN PRN Reason: Mild Pain (1-3) or Fever Hydrocodone Bitart/Acetaminophen (Hydrocodone/Acetaminophen (*Crx) 5-325 Mg Tablet) 1 tab PO Q6H PRN PRN Reason: Pain Rated 4-6 Aspirin (Aspirin 81 Mg Enteric Tablet) 81 mg PO QAM [facility] Last Admin: 01/24/23 09:03 Dose: 81 mg Atorvastatin Calcium (Atorvastatin 40 Mg Tablet) 80 mg PO QHS [facility] Last Admin: 01/23/23 21:03 Dose: 80 mg Heparin Sodium (Porcine) (Heparin Sodium 5,000 Units/Ml Vial) 3,000 units IV PUSH PRN PRN PRN Reason: aPTT 55 - 70 seconds Last Admin: 01/24/23 08:07 Dose: 3,000 units Heparin Sodium (Porcine) (Heparin Sodium 5,000 Units/Ml Vial) 4,000 units IV PUSH PRN PRN PRN Reason: aPTT less than 55 seconds Heparin Sodium/Dextrose (Heparin Sodium/D5w 100 Units/Ml) 25,000 units in 250 mls @ 10 mls/hr IV CONT .Q24H [facility]; Protocol Last Titration: 01/24/23 08:06 Dose: 1,000 units/hr, 10 mls/hr Sodium Chloride (Normal Saline Iv) 1,000 mls @ 125 mls/hr IV CONT .Q8H ONE Stop: 01/24/23 18:11 Metoprolol Tartrate (Metoprolol Tartrate 12.5 Mg Tablet) 12.5 mg PO Q12HR [facility] Last Admin: 01/24/23 09:03 Dose: 12.5 mg Morphine Sulfate (Morphine Sulfate (*Crx) 2 Mg/Ml Inj) 2 mg IV PUSH Q4H PRN PRN Reason: Pain Rated 7-10 Perflutren Lipid Microsphere (Perflutren Lipid Microspheres 1.5 Ml Vial Diluted To 10 Ml Total Volume) 0 ml IV PUSH ONCE PRN; Protocol PRN Reason: adequate visualization Stop: 01/25/23 20:02 Transfer Discharge Sum: Hosp Hospital Course Hospital course: The patient presented to the emergency department for evaluation of chest discomfort elevated troponin EKG shows sinus rhythm no ST elevation started on a heparin drip as well as a high-intensity statin and beta-cayla. left heart catheterization multiple coronary artery disease, patient will be transferred to [facility] for CABG The procedure is uncomplicated. Tracee
--- NOTE | 2023-01-24 19:44 | PC.NURSE ---
1745 Pt left with [facility], vital signs stable, AO x4. Arm board secure on pts right arm, pressure dressing dry and intact to right distal radius, palpated strong brachial pulse and pt stated normal sensation.
== END 2023-01-24 17:34 | disposition short-term general hospital (02) ==
LOC: ANHED 14:23 → ANHIMU 19:02
PROVIDERS: Internal Medicine; Internal Medicine Cardiovascular Disease; Physician Assistant; Admitting Provider Student in an Organized Health Care Education/Training Program; Emergency Provider Emergency Medicine; PCP Family Medicine; Visit Provider Hospitalist
PROC: 4A023N7 Measurement of Cardiac Sampling and Pressure, Left Heart, Percutaneous Approach (ICD-10-PCS; CPT 93452; principal; 2023-01-24 09:30)
DX: I21.4 Non-ST elevation (NSTEMI) myocardial infarction (principal); R94.31 Abnormal electrocardiogram [ECG] [EKG]; R77.8 Other specified abnormalities of plasma proteins; R79.1 Abnormal coagulation profile; J98.11 Atelectasis; R00.1 Bradycardia, unspecified; N40.0 Benign prostatic hyperplasia without lower urinary tract symptoms; F17.290 Nicotine dependence, other tobacco product, uncomplicated; F10.90 Alcohol use, unspecified, uncomplicated; Z82.49 Family history of ischemic heart disease and other diseases of the circulatory system; Z79.82 Long term (current) use of aspirin
CPT/HCPCS: 36415; 71045; 71275; 80048; 80053; 80061; 83735; 84484; 85025; 85027; 85380; 85610; 85730; 93005; 93306; 93458; 96365; 96366; 96376; 99291; A9270; C1769; C1887; C1894; G0378; J0583; J1644; J1940; J2250; J2305; J3010; J7040; Q9967

== ENCOUNTER 2023-05-28 16:30 | Outpatient (RCR) | payer OTHER, SELFPAY | END 2023-05-28 23:59 | disposition home or self-care (01) | LOC: ANHCPREHAB 16:30 | PROVIDERS: PCP Family Medicine; Visit Provider Internal Medicine Cardiovascular Disease | DX: Z95.5 Presence of coronary angioplasty implant and graft (principal) | CPT/HCPCS: 93798 ==